=== PATIENT | female | born 1945 | race Caucasian/White ===

== ENCOUNTER 2018-12-09 00:34 | Outpatient (CLI) | payer MEDICARE, BC, SELFPAY ==
--- NOTE | 2018-12-09 15:38 | DI.MAMMO_ITS ---
SYMPTOM/DIAGNOSIS: SCREENING, Z12.31, [facility], Z00.00 MAMMOGRAMS: Mammograms were interpreted according to the usual protocol including computer analysis with CAD system, tomosynthesis and C view imaging. The breast tissue is of moderate radiodensity. There is an asymmetric region of increased density in the upper outer quadrant of the right breast which appears unchanged when compared with prior images. There are no suspicious calcifications. SUMMARY: No evidence of malignancy. Category 1. Yearly screening mammography is recommended. Breast density, category B. SA ASSESSMENT OF FINDINGS: Negative. Category 1. Patient will receive a letter notifying them of these results. BI-RADS category B. There are scattered areas of fibroglandular density.
== END 2018-12-09 00:54 ==
PROVIDERS: PCP Family Medicine; Visit Provider Nurse Practitioner Family
DX: Z12.31 Encounter for screening mammogram for malignant neoplasm of breast (principal)
CPT/HCPCS: 77063; 77067

== ENCOUNTER 2019-05-31 12:48 | Outpatient (REF) | payer MEDICARE, BC, SELFPAY ==
[2019-05-31 22:02] LABS: Anion Gap 10.7 mmol/L (3-11); BUN 21 mg/dL (7-18); CO2 27.3 mmol/L (21.0-32.0); CREATININE 0.91 mg/dL (0.55-1.02); Calcium 9.1 mg/dL (8.5-10.1); Chloride 102 mmol/L (98-107); Glucose 98 mg/dL (70-100); Potassium 3.9 mmol/L (3.5-5.1); Sodium 140 mmol/L (136-145); TSH (W/Ref FT4) 0.63 uIU/mL (0.358-3.74)
== END 2019-05-31 13:08 ==
LOC: NCHCN 12:48
PROVIDERS: PCP Family Medicine; Visit Provider Nurse Practitioner Family
DX: E03.9 Hypothyroidism, unspecified (principal); I10 Essential (primary) hypertension; R73.9 Hyperglycemia, unspecified
CPT/HCPCS: 80048; 83036; 84443

== ENCOUNTER 2019-12-05 08:49 | Outpatient (REF) | payer MEDICARE, BC, SELFPAY ==
[2019-12-05 22:02] LABS: Anion Gap 6.8 mmol/L (3-11); BUN 25 mg/dL (7-18); CO2 31.2 mmol/L (21.0-32.0); CREATININE 0.99 mg/dL (0.55-1.02); Calcium 9.2 mg/dL (8.5-10.1); Calculated LDL 107 mg/dL; Chloride 103 mmol/L (98-107); Cholesterol 184 mg/dL (<200); Estimated GFR 55.14 (mL/min/1.73m2); Glucose 101 mg/dL (74-106); HDL Cholesterol 66 mg/dL (40-60); Potassium 4.5 mmol/L (3.5-5.1); Sodium 141 mmol/L (136-145); Triglyceride 58 mg/dL (<150)
== END 2019-12-05 09:09 ==
LOC: NCHCN 08:49
PROVIDERS: PCP Family Medicine; Visit Provider Nurse Practitioner Family
DX: I10 Essential (primary) hypertension (principal)
CPT/HCPCS: 80048; 80061

== ENCOUNTER 2020-01-16 01:38 | Outpatient (CLI) | payer MEDICARE, BC, SELFPAY ==
--- NOTE | 2020-01-16 | DI.MAMMO_ITS ---
EXAM: MAMMO SCREENING CLINICAL HISTORY: SCREENING EXAM Z12.39 TECHNIQUE: Mammograms were interpreted according to the usual protocol including computer analysis w [employer] CAD system, tomosynthesis and C-view imaging. COMPARISON: 2009 through 2018 FINDINGS: The breasts are composed of scattered fibroglandular densities, Breast Density category B. No suspicious masses or suspicious microcalcifications are seen. There is a stable small nodule in s uperior right breast. No skin thickening or abnormal axillary lymph nodes are seen. There has been no significant change from prior exams. IMPRESSION: BIRADS Category 2, negative mammogram with benign findings. Yearly screening mammography is recommen ded.
== END 2020-01-16 01:58 ==
PROVIDERS: PCP Family Medicine; Visit Provider Nurse Practitioner Family
DX: Z12.31 Encounter for screening mammogram for malignant neoplasm of breast (principal)
CPT/HCPCS: 77063; 77067

== ENCOUNTER 2020-02-06 09:11 | Outpatient (REF) | payer MEDICARE, BC, SELFPAY ==
[2020-02-06 19:50] LABS: ALT 23 U/L (14-59); AST 19 U/L (15-37); Calculated LDL 61 mg/dL (<100); Cholesterol 140 mg/dL (<200); HDL Cholesterol 70 mg/dL (40-60); TSH 0.68 uIU/mL (0.36-3.74); Triglyceride 48 mg/dL (<150)
[2020-02-06 21:39] LABS: Creatine Kinase 88 U/L (26-192)
== END 2020-02-06 09:31 ==
LOC: NCHCN 09:11
PROVIDERS: PCP Family Medicine; Visit Provider Nurse Practitioner Family
DX: E03.9 Hypothyroidism, unspecified (principal); I10 Essential (primary) hypertension; G47.8 Other sleep disorders; M75.20 Bicipital tendinitis, unspecified shoulder
CPT/HCPCS: 80061; 82550; 84443; 84450; 84460

== ENCOUNTER 2020-12-18 16:47 | Outpatient (REF) | payer MEDICARE, BC, SELFPAY ==
[2020-12-18 15:36] LABS: C & S Indicated? C&S Done As Ordered; Crystals Many Amorphous HPF (Negative)
[2020-12-18 16:40] LABS: Hemoglobin A1C 5.8 % (<5.7)
[2020-12-18 17:02] LABS: ALT 25 U/L (14-59); AST 16 U/L (15-37); Anion Gap 6.4 mmol/L (3-11); BUN 26 mg/dL (7-18); CO2 29.6 mmol/L (21.0-32.0); CREATININE 0.9 mg/dL (0.55-1.02); Calcium 9.2 mg/dL (8.5-10.1); Calculated LDL 56 mg/dL (<100); Chloride 104 mmol/L (98-107); Cholesterol 140 mg/dL (<200); Glucose 124 mg/dL (74-106); HDL Cholesterol 71 mg/dL (40-60); Potassium 3.9 mmol/L (3.5-5.1); Sodium 140 mmol/L (136-145); TSH 0.42 uIU/mL (0.36-3.74); Triglyceride 66 mg/dL (<150)
[2020-12-18 17:14] LABS: Creatine Kinase 59 U/L (26-192)
== END 2020-12-18 16:48 | disposition home or self-care (01) ==
LOC: NCHCN 16:47
PROVIDERS: PCP Nurse Practitioner Family; Visit Provider Nurse Practitioner Family
DX: I10 Essential (primary) hypertension (principal); R73.03 Prediabetes; E03.9 Hypothyroidism, unspecified; R42 Dizziness and giddiness; M85.88 Other specified disorders of bone density and structure, other site; R35.1 Nocturia; E78.70 Disorder of bile acid and cholesterol metabolism, unspecified
CPT/HCPCS: 80048; 80061; 82550; 81015; 83036; 84443; 84450; 84460; 87086

== ENCOUNTER 2020-12-19 19:24 | Outpatient (REF) | payer MEDICARE, BC, SELFPAY ==
[2020-12-19 17:35] LABS: Bacteria Rare HPF (Negative); C & S Indicated? Yes; Crystals Negative HPF (Negative); Epithelial Cells Few HPF (Negative); Mucus Trace (Negative); RBC 0-2 HPF (0-2)
== END 2020-12-19 19:25 | disposition home or self-care (01) ==
LOC: NCHCN 19:24
PROVIDERS: PCP Nurse Practitioner Family; Visit Provider Nurse Practitioner Family
DX: I10 Essential (primary) hypertension (principal); R73.03 Prediabetes; E03.9 Hypothyroidism, unspecified; M85.88 Other specified disorders of bone density and structure, other site; R42 Dizziness and giddiness; R35.1 Nocturia
CPT/HCPCS: 81015; 87086

== ENCOUNTER 2020-12-20 00:48 | Outpatient (CLI) | payer MEDICARE, BC, SELFPAY ==
--- NOTE | 2020-12-20 14:10 | DI.DEXA_ITS ---
EXAM: XR DEXA BONE DENSITY W/WO MITCH CLINICAL HISTORY: OSTEOPENIA, M85.88 TECHNIQUE: COMPARISON: Comparison examination is 03/31/2005. FINDINGS: Lateral Spine Image: Unremarkable. No compression deformities identified. Left hip: Total T-Score: -1.1. This is unchanged compared to the prior examination. Total Z-Score: 0.6 T- and Z-scores: Findings consistent with osteopenia. Lumbar Spine: Total T-Score: 0.4. This compares to 0.1 on the prior examination. Total Z-Score: 2.7 T- and Z-scores: Within normal limits. IMPRESSION: Osteopenia in the left hip. No evidence of osteoporosis.
== END 2020-12-20 00:49 | disposition home or self-care (01) ==
LOC: DI 00:48
PROVIDERS: PCP Nurse Practitioner Family; Visit Provider Nurse Practitioner Family
DX: M85.88 Other specified disorders of bone density and structure, other site (principal)
CPT/HCPCS: 77080

== ENCOUNTER 2021-01-16 00:58 | Outpatient (CLI) | payer MEDICARE, BC, SELFPAY ==
--- NOTE | 2021-01-16 | DI.MAMMO_ITS ---
EXAM: MG MAMMO SCREENING CLINICAL HISTORY: SCREENING, Z12.39 TECHNIQUE: Bilateral full field digital CC and MLO mammographic images were obtained with 3D tomosyn thesis and utilizing computer aided detection (CAD). COMPARISON: Available for comparison. FINDINGS: Masses/Architectural Distortion: No suspicious masses or areas of architectural distortion. The nodu le in the upper outer quadrant of the right breast is stable. Microcalcifications: No suspicious pleomorphic-type are seen. Skin Thickening/Nipple Retraction: None. IMPRESSION: 1. No significant interval change with no specific features of malignancy noted. 2. Unless there is more urgent need, screening mammography is recommended, as per [place] [employer] guidelines. BI-RADS Category 2 - Benign Findings Breast Density - Category B - Scattered areas of fibroglandular density Breast density category C or D implies that the patient has dense breast tissue. Dense breast tissue is very common and is not abnormal but dense breast tissue can make it harder to find cancer on a ma mmogram. Also, dense breast tissue may increase their breast cancer risk. This information about the result of the mammogram report was provided to the patient to raise their awareness. Use this report when you speak with the patient about their risks for breast cancer, which includes their family hist ory. At that time, you may recommend for more screening tests (Ultrasound or MRI) as they might be us eful based on their risk. A negative radiographic report should not delay biopsy if a dominant or clinically suspicious mass is present. Up to ten percent of cancers are not identified on mammography. A negative report may reinforce clinical impression. Adenosis and dense breasts may obscure an underlying neoplasm. False positive reports average 6 to 10%. Patient will receive a letter notifying them of these results.
== END 2021-01-16 01:18 ==
PROVIDERS: PCP Nurse Practitioner Family; Visit Provider Nurse Practitioner Family
DX: Z12.31 Encounter for screening mammogram for malignant neoplasm of breast (principal)
CPT/HCPCS: 77063; 77067

== ENCOUNTER 2021-10-28 11:52 | Outpatient (REF) | payer MEDICARE, BC, SELFPAY ==
[2021-10-29 13:41] LABS: COVID-19 RT-PCR UVMMC Result Negative (Negative)
== END 2021-10-28 11:53 | disposition home or self-care (01) ==
LOC: NCHCN 11:52
PROVIDERS: PCP Nurse Practitioner Family; Visit Provider Nurse Practitioner Family
DX: Z20.822 Contact with and (suspected) exposure to COVID-19 (principal)
CPT/HCPCS: U0003; U0005

== ENCOUNTER 2021-11-01 10:50 | Outpatient (REF) | payer MEDICARE, BC, SELFPAY ==
[2021-11-02 17:19] LABS: COVID-19 RT-PCR UVMMC Result Negative (Negative)
== END 2021-11-01 10:51 | disposition home or self-care (01) ==
LOC: NCHCN 10:50
PROVIDERS: PCP Nurse Practitioner Family; Visit Provider Nurse Practitioner Family
DX: Z20.822 Contact with and (suspected) exposure to COVID-19 (principal)
CPT/HCPCS: U0003; U0005

== ENCOUNTER 2022-01-27 12:26 | Outpatient (REF) | payer MEDICARE, BC, SELFPAY ==
[2022-01-27 15:34] LABS: ALT 19 U/L (14-59); AST 14 U/L (15-37); Anion Gap 8.3 mmol/L (3-11); BUN 21 mg/dL (7-18); CO2 27.7 mmol/L (21.0-32.0); Calculated LDL 57 mg/dL (<100); Chloride 103 mmol/L (98-107); Cholesterol 141 mg/dL (<200); Glucose 102 mg/dL (74-106); HDL Cholesterol 70 mg/dL (40-60); Potassium 3.9 mmol/L (3.5-5.1); Sodium 139 mmol/L (136-145); TSH 1.61 uIU/mL (0.36-3.74); Triglyceride 71 mg/dL (<150)
[2022-01-27 15:59] LABS: Creatine Kinase 59 U/L (26-192); FREE T4 1.13 ng/dL (0.76-1.46)
== END 2022-01-27 12:27 | disposition home or self-care (01) ==
LOC: NCHCN 12:26
PROVIDERS: PCP Nurse Practitioner Family; Visit Provider Nurse Practitioner Family
DX: E78.70 Disorder of bile acid and cholesterol metabolism, unspecified (principal); E03.9 Hypothyroidism, unspecified
CPT/HCPCS: 80048; 80061; 82550; 84439; 84443; 84450; 84460

== ENCOUNTER 2022-03-06 01:16 | Outpatient (CLI) | payer MEDICARE, BC, SELFPAY ==
--- NOTE | 2022-03-06 | DI.MAMMO_ITS ---
Exam(s) MAMMO SCREENING EXAM: MAMMO SCREENING CLINICAL HISTORY: SCREENING FOR BREAST CANCER Z12.39 Z12.31. TECHNIQUE: Bilateral full field digital CC and MLO mammographic images were obtained with 3D tomosyn thesis and utilizing computer aided detection (CAD). COMPARISON: Prior mammograms were reviewed, the most recent being January 2021. FINDINGS: There has been no significant change in the appearance and distribution of the fibroglandular tissue. Small benign-appearing nodule in the right breast is unchanged from prior mammograms dating back to a t least 2011. Therefore benign. There are no new spiculated masses nor malignant appearing microcalcification groups. There is no significant architectural distortion nor skin thickening-retraction. IMPRESSION: No radiographic evidence of malignancy. BI-RADS Category 1 - Negative Breast Density - Category B - Scattered areas of fibroglandular density Breast density Category C or D implies that the patient has dense breast tissue. Dense breast tissue can make it harder to find cancer on a mammogram. Dense breast tissue is also associated with an incr eased risk of breast cancer. This information about the result of the mammogram report was provided to the patient to raise their awareness. Use this report when you speak with the patient about their risks for breast cancer, which includes their family history. At that time, you may recommend additional screening tests (Ultrasoun d or MRI) as these tests may add significant information. A negative radiographic report should not delay biopsy if a dominant or clinically suspicious mass is present. Up to ten percent of cancers are not identified on mammography. A negative report may reinforce clinical impression. Adenosis and dense breasts may obscure an underlying neoplasm. False positive reports average 6 to 10%. Patient will receive a letter notifying them of these results.
== END 2022-03-06 01:36 ==
PROVIDERS: PCP Nurse Practitioner Family; Visit Provider Nurse Practitioner Family
DX: Z12.31 Encounter for screening mammogram for malignant neoplasm of breast (principal)
CPT/HCPCS: 77063; 77067

== ENCOUNTER → 2022-07-03 13:42 | Outpatient (CLI) | payer MEDICARE, BC, SELFPAY ==
--- NOTE | 2022-07-03 | DI.US_ITS ---
Exam(s) US LOWER EXTREMITY VENOUS RT EXAM: US LOWER EXTREMITY VENOUS RT CLINICAL HISTORY: PAIN IN RT THIGH, M79.651, ? DVT. TECHNIQUE: Lower extremity venous ultrasound performed using grayscale, color-flow, and spectral Do ppler analysis. COMPARISON: No exams were available for comparison FINDINGS: The common femoral, femoral and popliteal veins demonstrate normal compressibility, augmentation, and color Doppler. The posterior tibial veins are patent. No saphenous vein thrombosis or other superfi cial venous thrombosis is seen. No hematoma or Easton's cyst is seen. IMPRESSION: Negative lower extremity ultrasound. No evidence of DVT. DATA REPOSITORY:
--- OUTSIDE RECORDS SUMMARY | 2022-07-03 13:47 | XMS_ITS ---
:1945 Author Organization [facility] Address [address] [place] [id number] Care Team Providers Name Role Phone Lito Smallwood Unavailable Unavailable PROBLEMS Unknown Problems ALLERGIES No Known Allergies ENCOUNTERS Encounter Location Date Diagnosis [facility] [address] [place] [address] Aug, 020 IMMUNIZATIONS No Known Immunizations SOCIAL HISTORY Never Assessed REASON FOR REFERRAL FUNCTIONAL STATUS PLAN OF CARE VITAL SIGNS MEDICATIONS Unknown Medications PROCEDURES Procedure Date Ordered Result Body Site Cardio:EKG done at hospital 2014-10-02 N/A RESULTS Name Result Date Reference Range [id number] 2020-08-16 COVID-19 Not Detected Not Detected BASEMET 2014-10-02 GLUC 132 74-106 BUN 30 7-18 CREATS 0.89 0.60-1.30 EGFR >60 >=60 NA 137 136-144 K+ 3.3 3.7-5.0 CL 99 98-108 CO2 30 22-32 CA 9.5 8.5-10.1 CBC WITH AUTO DIFF 2014-10-02 WBC 10.5 4.0-12.0 RBC 5.1 4.5-6.0 HGB 14.6 12.5-16.0 HCT 43.5 37.0-47.0 MCV 85 78-100 MCH 28.5 27.0-32.0 MCHC 33.6 32.0-36.0 RDW 13.9 11.0-14.0 PLT 282 140-440 MPV 9.4 7.4-11.0 NE% 78.5 45.0-75.0 LY% 13.5 20.0-50.0 MO% 6.6 2.0-10.0 EO% 1 0-6 BA% 1 0-1 ANC 8.2 1.4-7.9 REASON FOR VISIT Covid Test, traveled home from .. just wants to be cleared Insurance Providers [facility] Member Patient Patient Patient Patient Patient Subscriber Subscriber Subscriber Group Insurance Plan Plan Plan Plan ID Relationship Address Phone Name Date of ID Name Date of No Type Insurance Insurance Insurance Coverage to Subscriber Address Phone Name Dates S-BLUE [phone] S-BLUE self [place] [id number] [phone] [id number] [place] [id number] [place] [address] [place] [address] [place] 3000 GOFFS MEDICARE self [place] [id number] [facility] [id number] SELF PAY [address] SELF PAY self [place] [id number] AFTER BLUE PATRICK AFTER BLUE A [facility] [id number] [address]
== END ==
PROVIDERS: PCP Nurse Practitioner Family; Visit Provider Physician Assistant Medical
DX: M79.651 Pain in right thigh (principal)
CPT/HCPCS: 93971

== ENCOUNTER → 2022-09-02 13:12 | Outpatient (BNVA) | payer MEDICARE, BC, SELFPAY | PROVIDERS: PCP Nurse Practitioner Family; Referring Provider Nurse Practitioner Family; Visit Provider Student in an Organized Health Care Education/Training Program | DX: M65.322 Trigger finger, left index finger (principal); M65.341 Trigger finger, right ring finger | CPT/HCPCS: 99204 ==

== ENCOUNTER 2022-09-19 08:14 | Day surgery (SDC) | payer MEDICARE, BC, SELFPAY ==
[2022-09-19 08:27] VITALS: BP 181/71; PULSE 76; RESP 16; TEMP 36.4; O2SAT 100
[2022-09-19] MEDS: Lactated Ringers 1,000 ML 30 ML IV (09:27)
[2022-09-19 11:56] VITALS: BP 184/72; RESP 16; O2SAT 100
[2022-09-19] MEDS: ceFAZolin 2 GM/50 ML BAG IVPB (11:58)
--- NOTE | 2022-09-19 12:00 | ROE_ITS ---
Date of service: 09/19/22 Time of Service: 12:56 Operative Note Operative Note DATE OF PROCEDURE: 09/19/22 PRE-OP DIAGNOSIS: 1. Left index trigger finger 2. Right ring trigger finger POST-OP DIAGNOSIS: same PROCEDURE: 1. Left index trigger finger release, CPT# 75951 2. Right ring trigger finger release, CPT# 55683 SURGEON: Kushal Burks ANESTHESIA TYPE: Local By Surgeon Refer to Anesthesia Record ESTIMATED BLOOD LOSS: 5 TOURNIQUET TIME: 0 COMPLICATIONS: None Patient was transported to: same day Patient's condition: stable Indications: Please see complete medical record for details. Procedure Description: The correct patient, procedure, and side of the procedure were all verified prio r to beginning. Local anesthesia with 2% lidocaine containing epinephrine was induced at bilateral surgical sites: Left index finger and right ring finger. The patient was positioned supine on the operating room table. All bony prominences were well-padded. Preoperative antibiotics were administered. The left hand was prepped and draped in the usual sterile fashion. A small volar longitudinal approach was taken directly down to the left index finger A1 yu. The margins were exposed with gentle retraction and the yu was exposed with a Ray-Yenny and released sharply with careful spreading proximally distally as well as tendon excursion through the wound used to confirm complete release. Hemostasis was appropriate. The wound was irrigated and skin closed using 4-0 nylon horizontal mattress. Xeroform, gauze, and gentle Sherwin bandage placed over the hand and wrist. Next, the right hand was prepped and draped in the usual sterile fashion. Similarly, a small volar longitudinal approach was taken directly down to the right ring finger A1 yu. The margins were exposed with gentle retraction and the yu was exposed with a Ray-Yenny and released sharply with careful spre ading proximally distally as well as tendon excursion through the wound used to confirm complete release. Hemostasis was appropriate. The wound was irrigated. This incision was closed using 4-0 nylon and sealed with skin glue and covered with a regular Band-Aid. Gentle Sherwin bandage wrapped about the hand and wrist. The patient tolerated local without complication, demonstrated excellent left i ndex finger and right ring finger flexion extension without triggering, and was transferred to back to the day surgery unit in a stable condition.
[2022-09-19] MEDS: Sodium Bicarbonate 50 MEQ/50 ML VIAL (12:19)
[2022-09-19 12:46] VITALS: BP 142/69; PULSE 80; RESP 16; O2SAT 96
[2022-09-19 12:50] VITALS: BP 136/70; PULSE 80; RESP 16; TEMP 36.5; O2SAT 99
--- NOTE | 2022-09-19 12:51 | W.PM.DSUDISC ---
Date of service: 09/19/22 Time of Service: 12:00 Discharge Plan Disposition Patient Disposition: HOME Condition: Good Discharge Details Reason For Visit: Trigger release surgery Attending Provider: Kushal Burks Primary Care Provider: Jacki Hernandez Home Meds and New Rx's Prescriptions: Continued calcium carbonate-vitamin D3 [Calcium 500 With D] 1 EACH tablet 1 ea PO DAILY levothyroxine 50 mcg tablet 75 mcg PO DAILY meclizine 25 mg tablet 25 mg PO TID potassium chloride 10 mEq tablet extended release 15 meq PO DAILY atorvastatin 10 mg tablet 10 mg PO DAILY acetaminophen [Tylenol Extra Strength] 500 mg tablet 1,000 mg PO Q6H PRN hydrochlorothiazide 12.5 mg tablet 12.5 mg PO DAILY Discharge Instructions Additional Instructions: Surgery: Left index finger and Right ring finger trigger releases Activity: Gently increase use of bilateral hands. Prescriptions: None You may use [id number] Tylenol (acetaminophen) as needed for mild pain and Motrin/Aleve/ibuprofen/naproxen as needed for moderate pain and swelling These pain medications may be taken at the same time if needed Dressings: Right incision is glued and right hand may get wet. Change Band-Aid if it is wet. Left hand has usual gauze bandage that should be kept dry for 2-3 days. May then remove and leave open to air or cover incisions with Band-Aids. May shower after 5 days. Follow-up: 10-[address] Burks You may take off the leg compression stockings this evening at home. You may also leave them on a few days longer if you have a history of leg swelling or edema. Let us know right away if you develop any redness, drainage, fevers, chest pain, or trouble breathing. Do not drink alcohol or drive for at least 24 hours after anesthesia. Please call the office during business hours with any questions or concerns. Discharge Orders Discharge Orders: Discharge Order (Routine); Ordered 09/19/22 Ordered By: Kushal Burks DS: Diagnosis Discharge Diagnosis (1) Trigger finger, right ring finger: Status: Acute (2) Trigger finger, left index finger: Status: Acute
== END 2022-09-19 13:27 | disposition home or self-care (01) ==
PROVIDERS: PCP Nurse Practitioner Family; Visit Provider Student in an Organized Health Care Education/Training Program
PROC: (CPT 26055; principal; 2022-09-19 11:15)
DX: M65.341 Trigger finger, right ring finger (principal); M65.322 Trigger finger, left index finger
CPT/HCPCS: 26055 ×2; J0690

== ENCOUNTER → 2022-10-01 14:04 | Outpatient (BNVA) | payer MEDICARE, BC, SELFPAY | PROVIDERS: PCP Nurse Practitioner Family; Referring Provider Nurse Practitioner Family; Visit Provider Student in an Organized Health Care Education/Training Program | DX: Z47.89 Encounter for other orthopedic aftercare (principal); M65.322 Trigger finger, left index finger; M65.341 Trigger finger, right ring finger ==

== ENCOUNTER 2023-02-12 09:43 | Outpatient (REF) | payer MEDICARE, BC, SELFPAY ==
[2023-02-12 17:43] LABS: ALT 21 U/L (14-59); AST 19 U/L (15-37); Albumin 3.7 g/dL (3.4-5.0); Alkaline Phosphatase 73 U/L (46-116); Anion Gap 8.6 mmol/L (3-11); BUN 28 mg/dL (7-18); Bilirubin, Total 0.7 mg/dL (0.2-1.0); CO2 26.4 mmol/L (21.0-32.0); Calcium 9.3 mg/dL (8.5-10.1); Chloride 103 mmol/L (98-107); Creatine Kinase 87 U/L (26-192); Estimated GFR 58.75 (mL/min/1.73m2); Glucose 118 mg/dL (74-106); Potassium 3.8 mmol/L (3.5-5.1); Sodium 138 mmol/L (136-145); Total Protein 7.3 g/dL (6.4-8.2)
[2023-02-12 17:56] LABS: HDL Cholesterol 65 mg/dL (40-60); LDL CHOLESTEROL 60 mg/dL (<100)
== END 2023-02-12 09:44 | disposition home or self-care (01) ==
LOC: NCHCN 09:43
PROVIDERS: PCP Nurse Practitioner Family; Visit Provider Nurse Practitioner Family
DX: E03.9 Hypothyroidism, unspecified (principal); E78.70 Disorder of bile acid and cholesterol metabolism, unspecified; I10 Essential (primary) hypertension
CPT/HCPCS: 80053; 82550; 83721; 83718; 84443

== ENCOUNTER 2023-02-19 01:43 | Outpatient (CLI) | payer MEDICARE, BC, SELFPAY ==
--- NOTE | 2023-02-19 09:00 | ETT_ITS ---
APPROVED REPORT Exam: Exercise Treadmill Patient Location: Out-Patient Room/Bed: Stress Nurse: Bertha Prieto RN Ordering Provider:MONIKA GARBER, Contact Number: [phone] BMI: 24.79 Baseline Rhythm: Sinus Rhythm Indications: Arm Pain, systolic Heart Murmur, GOEL Medical History Medical History: HLD, HTN, hypothyroidism, anxiety Cardiac Medications: Atorvastatin, Hydrochlorothiazide, Levothyroxine Allergies: Sulfa's Cardiac Risk Factors: +family history, HTN, HLD Previous Cardiac Procedures: None Pretest Chest Pain Characteristics: None Exercise History: Physically active Physical Disabilities: None Lung Sounds: Clear Heart Sounds: +systolic murmur Stress Test Details Test: Exercise stress testing was performed using a Hermes protocol. Rest Stress HR Resting HR Supine: 78 bpm Max Heart Rate (APMHR): 145 bpm Resting HR Standin bpm Target HR (85% APMHR): 123 bpm Max HR Achieved: 136 bpm % of APMHR: 94 Recovery HR: 81 bpm HR response to stress: Normal HR response to stress BP Resting BP Supine: 174/84 mmHg Resting BP Standin/80 mmHg Max BP: 222/82 mmHg Recovery BP: 168/78 mmHg BP response to stress: Normal blood pressure response to stress. ECG Resting ECG: Sinus Rhythm Ectopy: None Stress ECG: Sinus Tachycardia ST Change: No significant ST segment changes noted Arrhythmia: Rare PVC Recovery ECG: Sinus Rhythm Recovery ST Change: No significant ST segment changes noted Recovery Arrhythmia: Rare PVC Clinical Reason for Termination: Target HR Achieved, Increased artifact making interpretation difficult Stress Symptoms: None Exercise duration: 2 min02 sec Highest Stage Reached: Stage 1: 1.7 mph at 10% grade. Exercise capacity: 4.64 METs Angina Score: None Hernandez Treadmill Score: 1.1 Rate Pressure Product: [id number] Stress ECG Conclusion 1. The resting electrocardiogram showed late transition 2. Patient exercised on the Hermes protocol and completed a workload of 4.64 METS 3. Accelerated heart rate response to exercise. Patient achieved 94 percent of predicted heart rate for age 4. There was no electrocardiographic evidence of myocardial ischemia 5. There were no significant dysrhyrhmias Hernandez Treadmill Score is 1.1 which is Moderate risk. Stress Test Summary STAGE Time (mins) Speed (mph) Grade (%) HR BP SpO2 SYMPTOMS METS Supine 78 174/84 Standing 69 170/80 1 3 1.7 10 135 4.5 1 min recovery 111 222/82 3 min recovery 83 194/78 6 min recovery 81 168/78 Patient was able to reach target heart rate very early in test. She was notably anxious and nervous. Test was stopped because of increased artifact that was making it difficult for real time interpretat ion despite attempts to adjust and fix leads/placement. Patient had no symptoms before, during, or af ter test. Oxygen saturations remained in the high 90's throughout test.
== END 2023-02-19 02:03 ==
LOC: DI 01:43
PROVIDERS: PCP Nurse Practitioner Family; Visit Provider Nurse Practitioner Family
DX: R06.09 Other forms of dyspnea (principal)
CPT/HCPCS: 93016; 93018; 93017

== ENCOUNTER 2023-03-09 00:37 | Outpatient (CLI) | payer MEDICARE, BC, SELFPAY ==
--- NOTE | 2023-03-09 | DI.MAMMO_ITS ---
Exam(s) MAMMO SCREENING EXAM: MAMMO SCREENING CLINICAL HISTORY: SCREENING MAMMO FOR BREAST CANCER Z12.31 TECHNIQUE: Bilateral full field digital CC and MLO mammographic images were obtained with 3D tomosyn thesis and utilizing computer aided detection (CAD). COMPARISON: Available for comparison. FINDINGS: Masses/Architectural Distortion: There is a stable nodule in the upper central right breast. No susp icious nodules or areas of architectural distortion are seen. Microcalcifications: No suspicious pleomorphic-type are seen. Skin Thickening/Nipple Retraction: None. IMPRESSION: 1. No significant interval change with no specific features of malignancy noted. 2. Unless there is more urgent need, screening mammography is recommended, as per [place] [employer] guidelines. BI-RADS Category 2 - Benign Findings Breast Density - Category B - Scattered areas of fibroglandular density Breast density category C or D implies that the patient has dense breast tissue. Dense breast tissue is very common and is not abnormal but dense breast tissue can make it harder to find cancer on a ma mmogram. Also, dense breast tissue may increase their breast cancer risk. This information about the result of the mammogram report was provided to the patient to raise their awareness. Use this report when you speak with the patient about their risks for breast cancer, which includes their family hist ory. At that time, you may recommend for more screening tests (Ultrasound or MRI) as they might be us eful based on their risk. A negative radiographic report should not delay biopsy if a dominant or clinically suspicious mass is present. Up to ten percent of cancers are not identified on mammography. A negative report may reinforce clinical impression. Adenosis and dense breasts may obscure an underlying neoplasm. False positive reports average 6 to 10%. Patient will receive a letter notifying them of these results.
== END 2023-03-09 00:57 ==
LOC: DI 00:38
PROVIDERS: PCP Nurse Practitioner Family; Visit Provider Nurse Practitioner Family
DX: Z12.31 Encounter for screening mammogram for malignant neoplasm of breast (principal)
CPT/HCPCS: 77063; 77067

== ENCOUNTER 2023-03-12 01:09 | Outpatient (CLI) | payer MEDICARE, BC, SELFPAY ==
--- NOTE | 2023-03-12 07:34 | DI.US_ITS ---
APPROVED REPORT EXAM: Comprehensive 2D, Doppler, and color-flow Echocardiogram Other Information Study Quality: Adequate Conclusion Normal left ventricular wall thickness and chamber size. Ejection fraction is 60%. Wall motion is n ormal Normal right ventricular size and systolic function Both atria are normal in size Aortic valve is trileaflet and sclerotic. There is mild aortic stenosisPeak gradient is 29, mean 17 mmHg. Calculated aortic valve area is 1.07 cm??. There is trace aortic regurgitation Estimated right ventricular systolic pressure is 19 mmHg Wall motion Left Ventricle The left ventricle is normal size. The left ventricular systolic function is normal. The left ventric ular ejection fraction is within the normal range. There is normal left ventricular wall thickness. T here is normal LV segmental wall motion. There is no ventricular septal defect visualized. LVEF is 60 %. Right Ventricle The right ventricle is normal size. The right ventricular systolic function is normal. The RVSP is 18 .9 mmHg. Atria The left atrium size is normal. The right atrium size is normal. The interatrial septum is intact wit h no evidence for an atrial septal defect. Aortic Valve Aortic valve is calcified. Aortic valve is trileaflet. Mild aortic stenosis. Peak aortic valve gradi ent is 29.5 mmHg. Highest mean aortic valve gradient is 16.3 mmHg. Calculated DEB by the continuity e quation is 1.07cm2. Trace aortic regurgitation. Mitral Valve Mild mitral annular calcification. No evidence of mitral valve stenosis. Trace mitral regurgitation. Tricuspid Valve The tricuspid valve is normal in structure. There is no tricuspid valve stenosis. Mild tricuspid regu rgitation. Pulmonic Valve The pulmonary valve is normal in structure. There is no pulmonic valvular stenosis. There is no pulmo kristen valvular regurgitation. Great Vessels The aortic root is normal in size. The ascending aorta is normal in size. Aortic arch is normal in ca liber. IVC is normal in size and collapses >50% with inspiration. Pericardium There is no pericardial effusion. 2D Dimensions IVSD d PLAX 0.90 cm F: 0.6-1.0 LV Vol A2C d MOD 50.2 mL LVPW d PLAX 0.90 cm F: 0.6 - 1.0 LV Vol A4C d MOD 56.3 mL LVID d PLAX 4.01 cm F: 3.8 - 5.2 LA vol/ BSA A2C s A-L 16.5 mL/m2 LVDs 2.70 cm F: 2.2 - 3.5 LA vol/ BSA A4C s A-L 17.7 mL/m2 Ao Root d 2.72 cm F: 2.7 - 3.3 LA Vol/ BSA Biplane s A-L 17.3 mL/m2 RA Area A4C 9.13 cm2 LA Area A4C s MOD 12.35 cm2 RA Vol/ BSA A4C s A-L 10.3 mL/m2 LA Area A2C s MOD 12.03 cm2 Ao Asc Diam d 3.07 cm F: 2.3 - 3.1 LV EF A4C MOD 59.5 % LV EF Teichholz 60.7 % LV EF A2C MOD 59.1 % LVEF (Card's) 57.67 % F: 54 - 74 LV EF Biplane MOD 57.7 % LV Volume 43.45 mL F: 46 - 106 SV 31.15 mL LV Volume Index 26.49 mL/m2 F: 29 - 61 SV Index 18.97 mL/m2 LV Vol Biplane MOD 54.0 mL FS 32.00 % M-Mode TAPSE 2.08 cm (M/F) >1.7 LV Diastology MV E' medial 0.092 (>0.07 m/s) E/A Ratio 0.7 LV E/e MED 6.05 (<14) MV E Vmax 0.56 (0.4-1.3 m/s) MV E' lateral 0.075 (>0.1 m/s) MV A Vmax 0.75 (0.4-1.3 m/s) LV E/e LAT 7.40 (<14) MV E/A Ratio 0.74 MV E/E' medial 6.08 MV E/E' lateral 7.42 Aortic Valve LVOT Area 2.86 cm2 AoV Area Vmax 1.07 cm2 LVOT Vmax 1.01 m/s AoV Area/ BSA (Vmax) 0.65 cm2/m2 LVOT Mean Yordan. 0.74 m/s DEB Mean Yordan. 1.11 cm2 LVOT Peak Grad 4.1 mmHg DEB Mean Yordan. Index 0.68 cm2/m2 LVOT Mean Grad 2.4 mmHg AR DT 3059 msec LVOT VTI 0.247 m AR PHT 887 msec LVOT Diam s 1.90 cm AoV Vmax 2.62 m/s Velocity Ratio 0.39 AoV Mean Yordan. 1.95 m/s AoV Peak Grad 27.4 mmHg LVOT SV 70.50 mL AoV Mean Grad 16.6 mmHg AoV VTI 0.558 m AoV Area VTI 1.19 cm2 AoV Area/ BSA (VTI) 0.73 cm/m2 Mitral Valve MV DT 194 (160-240 msec) MV PHT 56 msec MV Area PHT 3.91 cm2 MV VTI 0.214 m MV Area VTI 3.30 (4.0-6.0 cm2) Pulmonary Valve PV Vmax 0.86 (0.5-1.5 m/s) RVOT Peak Gr. 2.86 mmHg PV Peak Grad 2.9 mmHg RVOT Mean Gr. 1.70 mmHg PV Mean Grad 1.9 mmHg RVOT VTI 0.206 m PV VTI 0.183 m RVOT Vmax 0.85 m/s Tricuspid Valve TR Peak Grad 15.8 mmHg TR Vmax 1.99 m/s RA Pressure 3.00 mmHg RVSP (TR) 18.9 mmHg
== END 2023-03-12 01:29 ==
LOC: DI 01:09
PROVIDERS: PCP Nurse Practitioner Family; Visit Provider Nurse Practitioner Family
DX: R01.1 Cardiac murmur, unspecified (principal)
CPT/HCPCS: 93306

== ENCOUNTER → 2023-10-27 10:47 | Outpatient (BNVA) | payer MEDICARE, BC, SELFPAY | PROVIDERS: PCP Nurse Practitioner Family; Referring Provider Nurse Practitioner Family; Visit Provider Student in an Organized Health Care Education/Training Program | DX: M19.011 Primary osteoarthritis, right shoulder (principal); M67.921 Unspecified disorder of synovium and tendon, right upper arm; M65.331 Trigger finger, right middle finger | CPT/HCPCS: 20610; J1030 ==

== ENCOUNTER 2023-11-20 06:08 | Day surgery (SDC) | payer MEDICARE, BC, SELFPAY ==
[2023-11-20 06:15] VITALS: BP 149/76; PULSE 77; RESP 18; TEMP 36.5; O2SAT 98
--- NOTE | 2023-11-20 07:18 | W.PM.DSUDISC ---
Date of service: 11/20/23 Time of Service: 08:30 Discharge Plan Disposition Patient Disposition: Home Condition: Stable Discharge Details Attending Provider: Kushal Burks Primary Care Provider: Jacki Hernandez Home Meds and New Rx's Prescriptions: Continued calcium carbonate-vitamin D3 [Calcium 500 With D] 1 EACH tablet 1 ea PO DAILY levothyroxine 50 mcg tablet 75 mcg PO DAILY meclizine 25 mg tablet 25 mg PO TID potassium chloride 10 mEq tablet extended release 15 meq PO DAILY atorvastatin 10 mg tablet 10 mg PO DAILY acetaminophen [Tylenol Extra Strength] 500 mg tablet 1,000 mg PO Q6H PRN hydrochlorothiazide 12.5 mg tablet 12.5 mg PO DAILY Discharge Instructions Additional Instructions: Surgery: Right middle finger trigger release Activity: Protect hand for a few weeks. Gently increase finger motion and hand gripping to prevent stiffness. Recommend elevation to minimize swelling and discomfort. Prescriptions: None Resume home medicines, use [id number]-zhywkds Tylenol (acetaminophen) as needed for mild pain and ibuprofen (Motrin) or naproxen (Aleve) as needed for moderate to severe pain and swelling. Dressings: Leave dressing in place for 3 days. May then remove and leave open to air or cover incision with Band-Aid. May get wet after 5 days. Follow-up: 10-[address] Burks Please call the office during business hours with any questions or concerns. Discharge Orders Discharge Orders: Discharge Order (Routine); Ordered 11/20/23 Ordered By: Kushal Burks DS: Diagnosis Discharge Diagnosis (1) Trigger finger, right middle finger: Status: Acute
--- NOTE | 2023-11-20 07:20 | W.PM.OP ---
Date of service: 11/20/23 Time of Service: 07:30 Operative Note Operative Note DATE OF PROCEDURE: 11/20/23 PRE-OP DIAGNOSIS: Right middle trigger finger PROCEDURE: Right middle finger trigger release, CPT# 24658 SURGEON: Kushal Burks [employer]DL[employer] TECHNICIAN: None None ANESTHESIA TYPE: Local By Surgeon Refer to Anesthesia Record ESTIMATED BLOOD LOSS: 1 TOURNIQUET TIME: 0 COMPLICATIONS: None Patient was transported to: same day Patient's condition: stable Indications: Please see complete medical record for details. Procedure Description: In the operating room, the patient was positioned supine on the stretcher. All bony prominences were padded. Preoperative antibiotics were omitted. The correct patient, procedure, and side of the procedure were all verified prior to beginning. Local anesthesia was induced about the site with 10cc of 1% lidocaine containing epinephrine buffered with 1 cc of sodium bicarbonate. The right hand was prepped and draped in the usual sterile fashion. Proper analgesia was confirmed. A small volar longitudinal approach was made overlying the middle finger MCP joint. Soft tissues were swept to the sides and retracted to expose the A1 yu. The release was started centrally proximally with tenotomy scissors and completed distally. Care was taken to protect the flexor tendons. The tendons were inspected and showed some tenosynovitis, but no significant tearing. Appropriate flexor tendon excursion was confirmed. The patient readily demonstrated full range of motion similar to the other fingers with mild limitation to PIP joint full extension likely due to age and arthritis, and deep flexion without triggering. The small incision was irrigated and then dried. Hemostasis was appropriate. The incision was closed using 3-0 nylon in a horizontal mattress fashion. Xeroform was applied followed by gauze and the hand was gently compressed with an Sherwin bandage. The patient tolerated local anesthesia without complication and was transferred out of the operating room in a stable condition.
[2023-11-20] MEDS: Lidocaine 1% Multi-Dose W/EPI 1/100,000 50 ML VIAL (07:48)
[2023-11-20] MEDS: Sodium Bicarbonate 50 MEQ/50 ML VIAL (07:48)
[2023-11-20 08:03] VITALS: BP 155/77; PULSE 79; RESP 18; TEMP 36.1; O2SAT 100
== END 2023-11-20 08:25 | disposition home or self-care (01) ==
PROVIDERS: PCP Nurse Practitioner Family; Visit Provider Student in an Organized Health Care Education/Training Program
PROC: (CPT 26055; principal; 2023-11-20 07:30)
DX: M65.331 Trigger finger, right middle finger (principal)
CPT/HCPCS: 26055; J2004

== ENCOUNTER → 2023-12-02 10:50 | Outpatient (BNVA) | payer MEDICARE, BC, SELFPAY | PROVIDERS: PCP Nurse Practitioner Family; Referring Provider Nurse Practitioner Family; Visit Provider Student in an Organized Health Care Education/Training Program | DX: Z47.89 Encounter for other orthopedic aftercare (principal); M65.331 Trigger finger, right middle finger ==

== ENCOUNTER 2024-02-23 16:02 | Outpatient (REF) | payer MEDICARE, BC, SELFPAY ==
[2024-02-23 18:31] LABS: HDL Cholesterol 67 mg/dL (40-60); LDL CHOLESTEROL 55 mg/dL (<100); TSH 0.86 uIU/Ml (0.36-3.74)
[2024-02-23 18:49] LABS: Creatine Kinase 65 U/L (26-192); FREE T4 1.17 ng/dL (0.76-1.46)
[2024-02-23 22:37] LABS: ALT 21 U/L (14-59); AST 15 U/L (15-37); Albumin 3.6 g/dL (3.4-5.0); Alkaline Phosphatase 84 U/L (46-116); Anion Gap 10.9 mmol/L (3-11); BUN 21 mg/dL (7-18); Bilirubin, Total 0.6 mg/dL (0.2-1.0); CO2 27.1 mmol/L (21.0-32.0); Calcium 9.1 mg/dL (8.5-10.1); Chloride 104 mmol/L (98-107); Estimated GFR 58.39 (mL/min/1.73m2); Glucose 104 mg/dL (74-106); Potassium 4.2 mmol/L (3.5-5.1); Sodium 142 mmol/L (136-145); Total Protein 7.1 g/dL (6.4-8.2)
== END 2024-02-23 16:03 | disposition home or self-care (01) ==
LOC: NCHCN 16:02
PROVIDERS: PCP Nurse Practitioner Family; Visit Provider Nurse Practitioner Family
DX: E03.9 Hypothyroidism, unspecified (principal); R73.03 Prediabetes
CPT/HCPCS: 80053; 82550; 83721; 83036; 83718; 84439; 84443

== ENCOUNTER → 2024-02-25 03:15 | Outpatient (CLI) | payer MEDICARE, BC, SELFPAY ==
--- NOTE | 2024-02-25 10:15 | DI.US_ITS ---
Exam(s) US CAROTID EXAM: US CAROTID CLINICAL HISTORY: VERTIGO, R42, DIZZINESS, GIDDINESS, FH STROKE, ? STENOSIS, CHOLESTEROL WELL. TECHNIQUE: Ultrasound carotids performed using grayscale, color-flow, and spectral Doppler imaging. COMPARISON: No exams were available for comparison FINDINGS: RIGHT CAROTID ARTERY: Plaque: No calcific plaque is identified. Velocity elevation: None. LEFT CAROTID ARTERY: Plaque: There is calcific plaque seen in the carotid bulb and the proximal internal carotid artery. Velocity elevation: None. VERTEBRAL ARTERIES: Antegrade flow. Measurements: R Bulb: 61.3cm/s PS / 17.8cm/s ED R CCA: 73.3cm/s PS / 21.8cm/s ED R ECA: 74.5cm/s PS / 8.7cm/s ED R ICA Prox: 51.7cm/s PS / 12.5cm/s ED R ICA Mid: 84.6cm/s PS / 29cm/s ED R ICA Distal: 97.3cm/s PS /39.1cm/s ED R Vert: 44.1cm/s PS / 11.3cm/s ED R SVR: 1.3 R DVR: 1.8 L Bulb: 63cm/s PS / 21.3cm/s ED L CCA: 73.4cm/s PS / 25.6cm/s ED L ECA: 65.2cm/s PS / 10.6cm/s ED L ICA Prox: 51.8cm/s PS / 17.6cm/s ED L ICA Mid: 73.9cm/s PS / 29.2cm/s ED L ICA Distal: 72.7cm/s PS / 30.4cm/s ED L Vert: 53.9cm/s PS / 16.3cm/s ED L SVR: 1 L DVR: 1.1 IMPRESSION: No evidence for hemodynamically significant carotid stenosis. Criteria for Carotid Stenosis: Normal: ICA PSV <125 cm/s no plaque or intimal thickening is visible. <50% stenosis: ICA PSV <125 cm/s and plaque or intimal thickening is visible. 50-69% stenosis: ICA PSV is 125-250 cm/s and plaque is visible. >70% stenosis to near occlusion: ICA PSV >250 cm/s with visible plaque and luminal narrowing. DATA REPOSITORY:
== END ==
PROVIDERS: PCP Nurse Practitioner Family; Visit Provider Nurse Practitioner Family
DX: R42 Dizziness and giddiness (principal)
CPT/HCPCS: 93880

== ENCOUNTER → 2024-03-18 02:19 | Outpatient (CLI) | payer MEDICARE, BC, SELFPAY ==
--- NOTE | 2024-03-18 | DI.MAMMO_ITS ---
Exam(s) MAMMO SCREENING EXAM: MAMMO SCREENING CLINICAL HISTORY: SCREENING MAMMO FOR BREAST CANCER Z12.31. TECHNIQUE: Bilateral full field digital CC and MLO mammographic images were obtained with 3D tomosyn thesis and utilizing computer aided detection (CAD). COMPARISON: Prior mammograms were reviewed. FINDINGS: There has been no significant change in the appearance and distribution of the fibroglandular tissue. Small benign-appearing nodule in central right breast is unchanged from 2014. There are no new spiculated masses nor malignant appearing microcalcification groups. There is no significant architectural distortion nor skin thickening-retraction. IMPRESSION: Stable benign findings. No radiographic evidence of malignancy. BI-RADS Category 2 - Benign Findings Breast Density - Category B - Scattered areas of fibroglandular density Breast density Category C or D implies that the patient has dense breast tissue. Dense breast tissue can make it harder to find cancer on a mammogram. Dense breast tissue is also associated with an incr eased risk of breast cancer. This information about the result of the mammogram report was provided to the patient to raise their awareness. Use this report when you speak with the patient about their risks for breast cancer, which includes their family history. At that time, you may recommend additional screening tests (Ultrasoun d or MRI) as these tests may add significant information. A negative radiographic report should not delay biopsy if a dominant or clinically suspicious mass is present. Up to ten percent of cancers are not identified on mammography. A negative report may reinforce clinical impression. Adenosis and dense breasts may obscure an underlying neoplasm. False positive reports average 6 to 10%. Patient will receive a letter notifying them of these results.
== END ==
PROVIDERS: PCP Nurse Practitioner Family; Visit Provider Nurse Practitioner Family
DX: Z12.31 Encounter for screening mammogram for malignant neoplasm of breast (principal)
CPT/HCPCS: 77063; 77067

== ENCOUNTER 2024-05-04 16:00 | Outpatient (REF) | payer MEDICARE, BC, SELFPAY | END 2024-05-04 16:01 | disposition home or self-care (01) | LOC: NCHCN 16:00 | PROVIDERS: PCP Nurse Practitioner Family; Visit Provider Physician Assistant Medical | DX: R10.9 Unspecified abdominal pain (principal); R82.998 Other abnormal findings in urine | CPT/HCPCS: 87086 ==

== ENCOUNTER → 2024-05-10 01:48 | Outpatient (CLI) | payer MEDICARE, BC, SELFPAY ==
--- NOTE | 2024-05-10 | DI.RAD_ITS ---
Exam(s) XR ABDOMEN FLAT PLATE EXAM: 2D digital imaging was performed. CLINICAL HISTORY: ABD PAIN,R10.9. COMPARISON: No exams were available for comparison TECHNIQUE: Supine views of the abdomen performed. FINDINGS: BOWEL GAS PATTERN: Nondistended. Normal quantity of stool. CALCIFICATIONS: No radiopaque calcifications. OSSEOUS STRUCTURES: Normal for age. OTHER FINDINGS: Lung bases are clear. No organomegaly. IMPRESSION: 1. Nonobstructive bowel gas pattern. 2. No radiopaque calculi. DATA REPOSITORY: RADIATION DOSE DELIVERED:
== END ==
PROVIDERS: PCP Nurse Practitioner Family; Visit Provider Physician Assistant Medical
DX: R10.9 Unspecified abdominal pain (principal)
CPT/HCPCS: 74018

== ENCOUNTER 2024-08-31 02:09 | Outpatient (CLI) | payer MEDICARE, BC, SELFPAY ==
--- NOTE | 2024-08-31 | DI.US_ITS ---
Exam(s) US HERNIA EXAM: US HERNIA CLINICAL HISTORY: LLQ PAIN R10.32 INTERMITTENT TWINGES, ? HERNIA. TECHNIQUE: Ultrasound was performed using standard protocol. COMPARISON: No exams were available for comparison FINDINGS: Sonographic assessment utilizing grayscale and color Doppler imaging was performed and targeted to th e area of clinical concern. The area in the left lower quadrant was evaluated sonographically. There is no sonographic evidence of a hernia. IMPRESSION: No sonographic evidence of a hernia. DATA REPOSITORY:
== END 2024-08-31 02:29 ==
LOC: DI 02:09
PROVIDERS: PCP Nurse Practitioner Family; Visit Provider Nurse Practitioner Family
DX: R10.32 Left lower quadrant pain (principal)
CPT/HCPCS: 76857

== ENCOUNTER 2024-11-25 16:54 | Outpatient (REF) | payer MEDICARE, BC, SELFPAY ==
[2024-11-25 15:55] LABS: Anion Gap 6.3 mmol/L (3-11); BUN 14 mg/dL (7-18); CO2 30.7 mmol/L (21.0-32.0); Chloride 97 mmol/L (98-107); Estimated GFR 58.02 (mL/min/1.73m2); Glucose 177 mg/dL (74-106); Potassium 4.5 mmol/L (3.5-5.1); Sodium 134 mmol/L (136-145)
[2024-11-25 16:04] LABS: Calcium 9.2 mg/dL (8.5-10.1)
== END 2024-11-25 16:55 | disposition home or self-care (01) ==
LOC: NCHCN 16:54
PROVIDERS: PCP Nurse Practitioner Family; Visit Provider Nurse Practitioner Family
DX: E87.1 Hypo-osmolality and hyponatremia (principal)
CPT/HCPCS: 80048

== ENCOUNTER 2024-12-22 10:36 | Outpatient (REF) | payer MEDICARE, BC, SELFPAY ==
[2024-12-22 15:15] LABS: BUN 15 mg/dL (7-18); CREATININE 1.1 mg/dL (0.55-1.02); Calcium 9.2 mg/dL (8.5-10.1); Chloride 94 mmol/L (98-107); Estimated GFR 51.75 (mL/min/1.73m2); Glucose 172 mg/dL (74-106); Potassium 4.3 mmol/L (3.5-5.1); Sodium 129 mmol/L (136-145)
== END 2024-12-22 10:37 | disposition home or self-care (01) ==
LOC: NCHCN 10:36
PROVIDERS: PCP Nurse Practitioner Family; Visit Provider Nurse Practitioner Family
DX: I10 Essential (primary) hypertension (principal)
CPT/HCPCS: 80048

== ENCOUNTER 2025-01-20 13:56 | Outpatient (REF) | payer MEDICARE, BC, SELFPAY ==
[2025-01-20 16:20] LABS: HCT 27.4 % (36.0-46.0); HGB 8.2 g/dL (11.2-15.7); MCH 22.3 pg (27.0-33.0); MCHC 29.9 % (32.0-36.0); MCV 75 fL (80-95); MPV 8.6 fL (8.0-11.0); Platelet Count 605 10^3/uL (130-400); RBC 3.67 10^6/uL (3.93-5.22); RDW 18.6 % (11.7-14.6); RDW-SD 50.2 fL
[2025-01-20 16:38] LABS: Absolute Eosinophil Count 1.04 10^3/uL (0.0-0.7); Absolute Lymphocyte Count 0.52 10^3/uL (1.2-3.4); Absolute Monocyte Count 2.08 10^3/uL (0.1-0.8); Absolute Neutrophil Count 22.38 10^3/uL (1.2-6.7)
[2025-01-20 16:39] LABS: Diff Comment Manual Differential; Microcytosis 2+
[2025-01-20 16:53] LABS: Iron 12 ug/dL (50-170); Total Iron Binding Capacity 130 ug/dL (250-450); Transferrin Sat 9 % (15-50)
[2025-01-20 17:18] LABS: Vitamin B12 577 pg/mL (193-986)
[2025-01-20 17:23] LABS: Ferritin > 2000 ng/mL (8-252)
[2025-01-20 18:19] LABS: WBC 26.02 10^3/uL (4.4-10.8)
== END 2025-01-20 13:57 | disposition home or self-care (01) ==
LOC: NCHCN 13:56
PROVIDERS: PCP Nurse Practitioner Family; Visit Provider Nurse Practitioner Family
DX: D64.9 Anemia, unspecified (principal)
CPT/HCPCS: 82607; 82728; 83540; 83550; 85025; 85045

== ENCOUNTER 2025-02-13 01:45 | Outpatient (CLI) | payer MEDICARE, BC, SELFPAY ==
[2025-02-13 09:37] LABS: Abs Immature Grans 0.57 10^3/uL (0.0-0.06); Basophils % 0.6 %; Eosinophils % 2.2 %; Immature Grans % 1.6 %; Lymphocytes % 3.6 %; MCH 22.6 pg (27.0-33.0); MCHC 30.8 % (32.0-36.0); MCV 73 fL (80-95); MPV 8.4 fL (8.0-11.0); Monocytes % 6.4 %; Neutrophils % 85.6 %; Platelet Count 522 10^3/uL (130-400); RBC 3.54 10^6/uL (3.93-5.22); RDW 18.8 % (11.7-14.6); RDW-SD 49.7 fL
[2025-02-13 09:52] LABS: Absolute Basophil Count 0.22 10^3/uL (0.0-0.2); Absolute Eosinophil Count 0.79 10^3/uL (0.0-0.7); Absolute Lymphocyte Count 1.29 10^3/uL (1.2-3.4); Absolute Monocyte Count 2.29 10^3/uL (0.1-0.8); Absolute Neutrophil Count 30.68 10^3/uL (1.2-6.7)
[2025-02-13 09:54] LABS: Diff Comment Diff Reviewed; Microcytosis 1+
[2025-02-13 09:56] LABS: WBC 35.84 10^3/uL (4.4-10.8)
[2025-02-13 09:59] LABS: ALT 17 U/L (14-59); AST 27 U/L (15-37); Albumin 1.8 g/dL (3.4-5.0); Alkaline Phosphatase 265 U/L (46-116); BUN 21 mg/dL (7-18); Bilirubin, Total 0.6 mg/dL (0.2-1.0); Calcium 9.6 mg/dL (8.5-10.1); Chloride 91 mmol/L (98-107); Estimated GFR 58.02 (mL/min/1.73m2); FREE T4 1.51 ng/dL (0.76-1.46); Glucose 140 mg/dL (74-106); Magnesium 1.8 mg/dL (1.8-2.4); Potassium 4.7 mmol/L (3.5-5.1); Sodium 127 mmol/L (136-145); TSH 7.67 uIU/mL (0.36-3.74); Total Protein 6.8 g/dL (6.4-8.2)
== END 2025-02-13 01:46 | disposition home or self-care (01) ==
LOC: LBO 01:45
PROVIDERS: PCP Nurse Practitioner Family; Visit Provider Internal Medicine Medical Oncology
DX: Z79.899 Other long term (current) drug therapy (principal); C34.12 Malignant neoplasm of upper lobe, left bronchus or lung; C79.72 Secondary malignant neoplasm of left adrenal gland
CPT/HCPCS: 36415; 80053; 83735; 84439; 84443; 85025

== ENCOUNTER 2025-02-27 17:54 | Outpatient (REF) | payer MEDICARE, BC, SELFPAY ==
[2025-02-27 19:23] LABS: HCT 28.7 % (36.0-46.0); HGB 8.2 g/dL (11.2-15.7); MCH 22.2 pg (27.0-33.0); MCHC 28.6 % (32.0-36.0); MCV 78 fL (80-95); MPV 8.9 fL (8.0-11.0); RBC 3.69 10^6/uL (3.93-5.22); RDW 19.5 % (11.7-14.6)
[2025-02-27 19:27] LABS: Anion Gap 5.2 mmol/L (3-11); BUN 27 mg/dL (7-18); CO2 30.8 mmol/L (21.0-32.0); Calcium 10.7 mg/dL (8.5-10.1); Chloride 100 mmol/L (98-107); Estimated GFR 58.02 (mL/min/1.73m2); Glucose 109 mg/dL (74-106); Potassium 5.1 mmol/L (3.5-5.1); Sodium 136 mmol/L (136-145)
[2025-02-27 19:49] LABS: Platelet Count 679 10^3/uL (130-400)
== END 2025-02-27 17:55 | disposition home or self-care (01) ==
LOC: NCHCN 17:54
PROVIDERS: PCP Nurse Practitioner Family; Visit Provider Nurse Practitioner Family
DX: E87.1 Hypo-osmolality and hyponatremia (principal)
CPT/HCPCS: 80048; 85027